=== PATIENT | male | born 1960 ===

== ENCOUNTER → 2021-01-11 | Outpatient (CLI) | payer OTHER ==
[~2021-01-11] MED LIST: IBUP-1221 PO
[2021-01-11 16:22] LABS: ANION GAP 6 mmol/L (5-15); CALCIUM 9.2 mg/dL (8.5-10.1); CHLORIDE 108 mmol/L (98-107); CREATININE 0.83 mg/dL (0.7-1.3)
[2021-01-11 16:24] LABS: INTERNATIONAL NORMALIZED RATIO 1.05 (0.93-1.1); PROTHROMBIN TIME 11.2 Seconds (9.6-11.5)
[2021-01-11 16:26] LABS: BASOPHILS % (AUTO) 1 % (0-1); EOSINOPHILS % (AUTO) 0 % (1-7); LYMPHOCYTES % (AUTO) 22 % (22-44); MEAN CORPUSCULAR HEMOGLOBIN 30.7 pg (27.5-34.5); MEAN CORPUSCULAR HGB CONC 34.1 g/dL (33.2-36.2); MEAN PLATELET VOLUME 7.8 fL (7.4-10.4); MONOCYTES % (AUTO) 8 % (2-9); NEUTROPHILS % (AUTO) 69 % (42-75); PLATELET COUNT 220 x10^3/uL (130-400); RED CELL DISTRIBUTION WIDTH 12.9 % (9.4-14.8)
== END | disposition home or self-care (01) ==
LOC: STAR 15:09
PROVIDERS: ATTEND Orthopaedic Surgery
DX: Z01.810 Encounter for preprocedural cardiovascular examination (principal); Z01.818 Encounter for other preprocedural examination; M25.562 Pain in left knee; M17.12 Unilateral primary osteoarthritis, left knee; Z20.822 Contact with and (suspected) exposure to COVID-19; Z79.01 Long term (current) use of anticoagulants
CPT/HCPCS: 80048; 83036; 85025; 85610; 85730; 87081; 87806; 93005; U0003; U0005; G0475

== ENCOUNTER 2021-01-17 08:08 | Observation (INO) | payer OTHER ==
[~2021-01-17] VITALS: Ht 180.3 cm; Wt 82.4 kg
[~2021-01-17 08:08] MED LIST changes: +EPINEPHRINE 1 MG/ML, 1ML ONE; +KETOROLAC 60 MG/2 ML ONE; +ROPIvacaine/PF 0.2%, 20 ML ONE; +SODIUM CHLORIDE 0.9% 50 ML ONE; +TRANEXAMIC ACID 100 MG/ML, 10ML ONE
[2021-01-17 08:37] VITALS: BP 126/80
[2021-01-17] MEDS ORDERED: CHLORHEXIDINE 15 ML UDC ONE (08:39)
[2021-01-17] MEDS ORDERED: MAGNESIUM HYDROXIDE 8%, 30ML UDC PO PRN (09:00)
[2021-01-17] MEDS ORDERED: DIPHENHYDRAMINE 50 MG/ML, 1ML IVPush PRN (09:00)
[2021-01-17] MEDS ORDERED: LACTATED RINGERS 1,000 ML IV SCH (09:00)
[2021-01-17] MEDS ORDERED: METOCLOPRAMIDE 5 MG/ML, 2ML IVPush PRN (09:00)
[2021-01-17] MEDS ORDERED: CHLORHEXIDINE 15 ML UDC PO ONE (09:00)
[2021-01-17] MEDS ORDERED: ACETAMINOPHEN 500 MG TABLET PO ONE (09:00)
[2021-01-17] MEDS: DOCUSATE 100 MG CAPSULE PO SCH ×2 (09:00→20:41)
[2021-01-17] MEDS ORDERED: DIPHENHYDRAMINE 50 MG CAPSULE PO PRN (09:00)
[2021-01-17] MEDS ORDERED: PSYLLIUM PACKET PO PRN (09:00)
[2021-01-17] MEDS ORDERED: GABAPENTIN 300 MG CAPSULE PO ONE (09:00)
[2021-01-17] MEDS ORDERED: POLYETHYLENE GLYCOL 17 GM PACKET PO PRN (09:00)
[2021-01-17] MEDS ORDERED: ONDANSETRON 4 MG TABLET PO PRN (09:00)
[2021-01-17] MEDS ORDERED: SENNA/DOCUSATE TABLET PO PRN (09:00)
[2021-01-17] MEDS ORDERED: HYDROmorphone 1 MG/ML, 1ML INJ IVPush PRN (09:00)
[2021-01-17] MEDS ORDERED: ONDANSETRON 2MG/ML, 2ML IVPush PRN (09:00)
[2021-01-17] MEDS: TAMSULOSIN 0.4 MG CAP.ER.24H PO SCH (09:00)
[2021-01-17] MEDS ORDERED: ALUMINUM/MAG/SIMETHICONE 30 ML UDC PO PRN (09:00)
[2021-01-17] MEDS ORDERED: ACETAMINOPHEN 650 MG/20.3 ML UDC PO PRN (09:00)
[2021-01-17] MEDS ORDERED: DIAZEPAM 5 MG TABLET PO PRN (09:00)
[2021-01-17] MEDS ORDERED: FENTANYL PF 250 MCG/5ML ONE (10:53)
[2021-01-17] MEDS ORDERED: MIDAZOLAM 1 MG/ML, 2ML ONE ×2 (10:53→14:35)
[2021-01-17] MEDS ORDERED: ROPIvacaine/PF 0.2%, 20 ML ONE (11:32)
[2021-01-17] MEDS ORDERED: PROPOFOL 50 ML ONE (12:20)
[2021-01-17] MEDS ORDERED: KETAMINE 50 MG/ML, 10ML ONE (12:22)
[2021-01-17] MEDS ORDERED: ROPIvacaine/PF 0.2%, 100ML 550 ML (check volume) INJ ONE (12:30)
[2021-01-17] MEDS ORDERED: LIDOCAINE 1%, 20ML ONE (12:31)
[2021-01-17] MEDS ORDERED: BUPIVACAINE/PF 0.25% ONE (13:16)
[2021-01-17] MEDS ORDERED: DEXAMETHASONE 4 MG/ML, 1ML ONE (13:18)
[2021-01-17] MEDS ORDERED: ONDANSETRON 2MG/ML, 2ML ONE (13:18)
[2021-01-17] MEDS ORDERED: PROPOFOL 10 MG/ML, 20ML ONE (13:18)
[2021-01-17] MEDS ORDERED: CEFAZOLIN 1,000 MG ONE (13:18)
[2021-01-17] MEDS ORDERED: ALBUTEROL SULFATE 2.5 MG/3 ML NPPB PRN (13:30)
[2021-01-17] MEDS ORDERED: LABETALOL 5MG/ML, 20ML IV PRN (13:30)
[2021-01-17] MEDS ORDERED: MEPERIDINE/PF 25MG/0.5ML IVPush PRN (13:30)
[2021-01-17] MEDS ORDERED: ACETAMINOPHEN 325 MG TABLET PO PRN (13:30)
[2021-01-17] MEDS ORDERED: PROMETHAZINE 25 MG/ML, 1ML IVPush PRN (13:30)
[2021-01-17] MEDS ORDERED: OXYcodone 5 MG/5 ML ORAL.SOL UDC PO PRN (13:30)
[2021-01-17] MEDS ORDERED: OXYcodone 5 MG/5 ML ORAL.SOL UDC ONE ×2 (14:06→16:43)
[2021-01-17] MEDS ORDERED: FENTANYL PF 100 MCG/2ML ONE (14:06)
[2021-01-17] MEDS ORDERED: HYDROmorphone 1 MG/ML, 1ML INJ ONE (14:06)
[2021-01-17] MEDS: FENTANYL PF 100 MCG/2ML IV PRN ×2 (14:10→14:15)
[2021-01-17] MEDS: HYDROmorphone 1 MG/ML, 1ML INJ IVPush PRN ×2 (14:30→14:38)
[2021-01-17] MEDS: MIDAZOLAM 1 MG/ML, 2ML IV PRN ×2 (14:45→14:52)
[2021-01-17] MEDS ORDERED: TRANEXAMIC ACID 1,000 MG in SODIUM CHLORIDE 0.9% 100 ML IVPB ONE (15:00)
[2021-01-17] MEDS ORDERED: DIAZEPAM 5 MG/ML, 2ML ONE (16:03)
[2021-01-17] MEDS ORDERED: KETOROLAC 30 MG/1 ML ONE (16:17)
[2021-01-17] MEDS: KETOROLAC 30 MG/1 ML IV SCH (16:20)
[2021-01-17] MEDS ORDERED: METHOCARBAMOL 1,000 MG in DEXTROSE 5% 100 ML IV PRN (16:30)
[2021-01-17] MEDS ORDERED: DIAZEPAM 5 MG/ML, 2ML IVPush PRN (16:30)
[2021-01-17] MEDS: POTASSIUM CHLORIDE 20 MEQ in D5%-0.45% NACL 1,000 ML IV SCH (18:58)
[2021-01-17 19:34] VITALS: BP 110/70
[2021-01-17] MEDS: CEFAZOLIN PMX 1GM/50ML 50 ML IVPB SCH (20:49)
[2021-01-17 23:39] VITALS: BP 95/59
[2021-01-18] MEDS: KETOROLAC 30 MG/1 ML IV SCH ×2 (00:39→08:38)
[2021-01-18] MEDS: OXYcodone IR 5MG TABLET PO PRN ×3 (00:39→11:14)
[2021-01-18 03:19] VITALS: BP 97/62
[2021-01-18] MEDS ORDERED: DEXAMETHASONE 4 MG/ML, 1ML IVPush ONE (06:00)
[2021-01-18] MEDS ORDERED: ASPIRIN 81 MG TABLET EC PO SCH (06:00)
[2021-01-18] MEDS: CEFAZOLIN PMX 1GM/50ML 50 ML IVPB SCH (06:30)
[2021-01-18] MEDS: POTASSIUM CHLORIDE 20 MEQ in D5%-0.45% NACL 1,000 ML IV SCH (06:30)
[2021-01-18 07:17] VITALS: BP 102/62
[2021-01-18] MEDS: TAMSULOSIN 0.4 MG CAP.ER.24H PO SCH (08:34)
[2021-01-18] MEDS: DOCUSATE 100 MG CAPSULE PO SCH (08:38)
[2021-01-18 12:48] VITALS: BP 110/69
== END 2021-01-18 13:15 | disposition home or self-care (01) ==
LOC: OUT 08:08 → EDSEX 08:08 → ORIP 08:33 → 4NE 17:23 → DCLOUNGE 01-18 13:04
PROVIDERS: ADMIT Orthopaedic Surgery; ATTEND Orthopaedic Surgery
DX: M17.12 Unilateral primary osteoarthritis, left knee (principal); M71.22 Synovial cyst of popliteal space [Baker], left knee; Z79.899 Other long term (current) drug therapy
CPT/HCPCS: 27447; 36415; 73560; 85014; 85018; 96361; 96365; 96366; 96375; 96376; 97110; 97161; 97166; C1713; C1776; G0378; J0171; J0690; J1100; J1170; J1885; J2250; J2405; J2704; J2795; J2800; J3010; J3360; J3480; J3490; Q0162